=== PATIENT | male | born 1990 | race Caucasian/White ===

== ENCOUNTER 2023-07-16 08:48 | Emergency (ER) | payer OTHER ==
[~2023-07-16] VITALS: Ht 162.6 cm; Wt 81.6 kg
[2023-07-16 08:54] VITALS: BP 120/82; TEMP 98.9; O2SAT 99
== END 2023-07-16 09:28 | disposition home or self-care (01) ==
LOC: ER 08:51
DX: S63.284A Dislocation of proximal interphalangeal joint of right ring finger, initial encounter (principal); W23.0XXA Caught, crushed, jammed, or pinched between moving objects, initial encounter; Y93.67 Activity, basketball; Y92.89 Other specified places as the place of occurrence of the external cause; Y99.8 Other external cause status
CPT/HCPCS: 73120-TC; 73130-TC